=== PATIENT | male | born 1995 | race African-American/Black ===

== ENCOUNTER 2018-01-25 09:16 | Emergency (ER) | payer SELFPAY ==
[~2018-01-25] VITALS: Ht 182.9 cm; Wt 77.1 kg
[2018-01-25] MEDS ORDERED: KEFLEX500 MG PO (11:08)
[2018-01-25] MEDS ORDERED: MOTRIN800 MG PO (11:08)
[2018-01-25 11:23] VITALS: BP 145/88
== END 2018-01-25 11:27 | disposition home or self-care (01) ==
LOC: EME 09:16
PROC: 3E0234Z Introduction of Serum, Toxoid and Vaccine into Muscle, Percutaneous Approach (ICD-10-PCS; principal; 2018-01-25)
PROC: 0HQKXZZ Repair Right Lower Leg Skin, External Approach (ICD-10-PCS; principal; 2018-01-25)
DX: S80.11XA Contusion of right lower leg, initial encounter (principal); S81.811A Laceration without foreign body, right lower leg, initial encounter; V86.69XA Passenger of other special all-terrain or other off-road motor vehicle injured in nontraffic accident, initial encounter; Y92.481 Parking lot as the place of occurrence of the external cause; Z23 Encounter for immunization
CPT/HCPCS: 72040; 73564; 73590; 99281; 99284; J0690